=== PATIENT | male | born 1985 | race Two or more races ===

== ENCOUNTER 2023-02-02 16:51 | Emergency (ER) | payer OTHER ==
[~2023-02-02] VITALS: Ht 175.3 cm; Wt 138.2 kg
[2023-02-02 17:00] VITALS: BP 153/73; TEMP 97.2
[2023-02-02] MEDS ORDERED: NEOMYCIN-BACITRACIN-POLYM UNITDOSE PKG TOP OINT TOP ONE (19:00)
[2023-02-02] MEDS ORDERED: LIDOCAINE 1% HCL (LOCAL ANESTH.) INJ 20ML MDV ID ONE (19:00)
[2023-02-02] MEDS ORDERED: TETANUS-DIPTH-ACEL PERTUSSIS 0.5ML SYR Tdap IM ONE (19:00)
[2023-02-02] MEDS ORDERED: SILVER NITRATE-POTAS NITRA STICK TOP ONE (19:15)
[2023-02-02] MEDS ORDERED: IBUP1TAB5 PO (19:27)
[2023-02-02] MEDS ORDERED: CEPH500C PO (19:27)
[2023-02-02] MEDS ORDERED: MUPI2OIN2 EX (19:27)
[2023-02-02 20:45] VITALS: PULSE 79; RESP 18; O2SAT 99
== END 2023-02-02 20:45 | disposition home or self-care (01) ==
LOC: ER 16:51
DX: S61.301A Unspecified open wound of left index finger with damage to nail, initial encounter (principal); W26.0XXA Contact with knife, initial encounter; Y93.89 Activity, other specified; Y92.89 Other specified places as the place of occurrence of the external cause; Y99.8 Other external cause status
CPT/HCPCS: 73140; 90471; 90715; 99283; J2001